=== PATIENT | female | born 1970 | race Caucasian/White ===

== ENCOUNTER → 2020-12-06 | Outpatient (CLI) | payer OTHER | LOC: LAB 10:27 | PROVIDERS: ATTEND Specialist | DX: Z20.828 Contact with and (suspected) exposure to other viral communicable diseases (principal) ==

== ENCOUNTER → 2020-12-12 | Outpatient (CLI) | payer OTHER | LOC: LAB 13:51 | PROVIDERS: ATTEND Specialist | DX: Z20.822 Contact with and (suspected) exposure to COVID-19 (principal) ==

== ENCOUNTER → 2020-12-20 | Outpatient (CLI) | payer OTHER | LOC: LAB 11:01 | PROVIDERS: ATTEND Specialist | DX: Z20.822 Contact with and (suspected) exposure to COVID-19 (principal) ==

== ENCOUNTER → 2021-03-01 | Outpatient (CLI) | payer OTHER | LOC: LAB 09:20 | PROVIDERS: ATTEND Family Medicine | DX: Z20.822 Contact with and (suspected) exposure to COVID-19 (principal) ==